=== PATIENT | male | born 1950 | race Caucasian/White ===

== ENCOUNTER → 2017-12-07 | Outpatient (CLI) | payer OTHER, MEDICARE ==
[~2017-12-07] MED LIST: GADOBUTROL 10 ML VIAL IVP ONE
== END ==
LOC: FIMAGING 07:46
PROVIDERS: ATTEND Urology
DX: N40.2 Nodular prostate without lower urinary tract symptoms (principal)
CPT/HCPCS: 72197; 76377; A9585; 82565-PO

== ENCOUNTER → 2018-02-01 | Outpatient (CLI) | payer OTHER, MEDICARE ==
[~2018-02-01] MED LIST changes: -GADOBUTROL 10 ML VIAL IVP ONE; +IOPAMIDOL (ISOVUE-300) 100 ML BTL ONE
== END ==
LOC: FIMAGING 09:19
PROVIDERS: ATTEND Urology
DX: C61 Malignant neoplasm of prostate (principal); I70.0 Atherosclerosis of aorta
CPT/HCPCS: 74177; 78306; A9503; Q9967

== ENCOUNTER 2018-03-04 11:35 | Observation (INO) | payer OTHER, MEDICARE ==
--- NOTE | 2018-03-04 11:04 | PDANEPAE ---
ANE History of Present Illness prostate ca ANE Past Medical History - Cardiovascular History Hx Hypertension: Yes Hx Arrhythmias: No Hx Chest Pain: No Hx Coronary Artery / Peripheral Vascular Disease: No Hx CHF / Valvular Disease: No Hx Palpitations: No - Pulmonary History Hx COPD: No Hx Asthma/Reactive Airway Disease: No Hx Recent Upper Respiratory Infection: No Hx Oxygen in Use at Home: No Hx Sleep Apnea: No Sleep Apnea Screening Result - Last Documented: Positive Pulmonary History Comment: JOSÉ triggers - Neurologic History Hx Cerebrovascular Accident: No Hx Seizures: No Hx Dementia: No - Endocrine History Hx Diabetes: No Hypothyroid: No Hyperthyroid: No Obesity: no - Renal History Hx Renal Disorders: No - Liver History Hx Hepatic Disorders: No - Neurological & Psychiatric Hx Hx Neurological and Psychiatric Disorders: No - Cancer History Hx Cancer: No - Congenital Disorder History Hx Congenital Disorders: No Congenital History Comment: multiple family members of PE'S - GI History GERD: mild Hx Gastrointestinal Disorders: Yes Gastrointestinal History Comment: reflux - Other Health History Other Health History: allergic rhinitis. dental implants - Chronic Pain History Chronic Pain: No - Surgical History Prior Surgeries: elbow bone spur removal ANE Review of Systems Review of systems is: negative Review of Systems: - Exercise capacity METS (RN): 6 METS ANE Patient History - Allergies Allergies/Adverse Reactions: No Known Allergies Allergy (Verified 02/25/18 16:41) - Home Medications Home medications: home medication list seen and reviewed Home Medications: Atorvastatin Calcium [Lipitor 10 mg (*)] 10 mg PO HS 02/18/18 [Last Taken Unknown] Cyanocobalamin [Vitamin B12 (*)] 1,000 mcg PO DAILY 02/18/18 [Last Taken Unknown ] Fexofenadine HCl [Alicia Allergy] 60 mg PO DAILY 02/18/18 [Last Taken Unknown] Herbals/Supplements -Info Only 1 ea PO DAILY 02/18/18 [Last Taken Unknown] Losartan Potassium [Cozaar 50 mg (*)] 50 mg PO DAILY 02/18/18 [Last Taken Unknown] Omeprazole 20 mg PO DAILY 02/18/18 [Last Taken Unknown] Aspirin EC 81 mg (*) 02/25/18 [Last Taken Unknown] Ibuprofen 02/25/18 [Last Taken Unknown] - NPO status NPO Status: no food or drink >8 hours - Anes Hx Anes Hx: no prior problems - Smoking Hx Smoking Status: Never smoked Marijuana use: No - Alcohol Use Alcohol Use: Rarely - Family Anes Hx Family Anes Hx: none Family Hx Anesthesia Complications: none ANE Labs/Vital Signs - Vital Signs Height: 179.07 cm Weight: 90.718 kg ANE Physical Exam - Airway Neck exam: FROM Mallampati Score: Class 2 Mouth exam: normal dental/mouth exam - Pulmonary Pulmonary: no respiratory distress, clear to auscultation - Cardiovascular Cardiovascular: regular rate and rhythym, no murmur, rub, or gallop - ASA Status ASA Status: III ANE Anesthesia Plan Anesthesia Plan: general endotracheal anesthesia
[~2018-03-04 11:35] MED LIST changes: +HEPARIN 5,000 UNIT/0.5 ML INJ SC SCH; -IOPAMIDOL (ISOVUE-300) 100 ML BTL ONE
[2018-03-04] MEDS ORDERED: BUPIVACAINE/EPI 0.25% 30 ML SDV ONE (11:45)
[2018-03-04] MEDS ORDERED: PROPOFOL 200 MG/20 ML VIAL ONE (11:47)
[2018-03-04] MEDS ORDERED: fentaNYL 250 MCG/5 ML INJ ONE (11:47)
[2018-03-04] MEDS ORDERED: ROCURONIUM 100 MG/10 ML VIAL ONE (11:48)
[2018-03-04] MEDS ORDERED: LIDOCAINE 2% 5 ML SDV ONE (11:48)
[2018-03-04] MEDS ORDERED: ceFAZolin 2 GM in NS 100 ML IV ONE (11:55)
[2018-03-04] MEDS ORDERED: LR 1,000 ML IV ONE (11:56)
[2018-03-04] MEDS ORDERED: MIDAZOLAM 2 MG/2 ML VIAL IVP ONE (11:57)
[2018-03-04] MEDS ORDERED: CEFAZOLIN 2 GM/DEXTROSE/100 ML BAG IV ONE (11:57)
--- NOTE | 2018-03-04 12:52 | PDHPUP ---
History & Physical Update H&P update statement: This history and physical update is based on an assessment of the patient which was completed after admission or registration (within 24 hours), but prior to the surgery/procedure. H&P update: H&P reviewed & patient examined, no change in patient's condition since H&P completed H&P changes: none
[2018-03-04] MEDS ORDERED: DEXAMETHASONE 4 MG/ML VIAL ONE (13:33)
[2018-03-04] MEDS ORDERED: hydrALAZINE 20 MG/ML VIAL ONE (13:33)
[2018-03-04] MEDS ORDERED: NEOSTIGMINE METHYLSULFATE 5 MG/5 ML SYR ONE (15:22)
[2018-03-04] MEDS ORDERED: KETOROLAC 30 MG/1 ML SDV ONE (15:30)
[2018-03-04] MEDS ORDERED: PROMETHAZINE HCL 25 MG/ML INJ IVP PRN (15:33)
[2018-03-04] MEDS ORDERED: NALOXONE HCL 0.4 MG/ML INJ IVP PRN (15:33)
--- NOTE | 2018-03-04 15:34 | POSTANESTH ---
Post Anesthetic Evaluation Cardiovascular Status: Normal, Stable Respiratory Status: Normal, Stable Level of Consciousness/Mental Status: Can Participate in Eval Pain Control: Adequate, Prn Tx Ordered Nausea/Vomiting Control: Adequate, Prn Tx Ordered Complications Possibly Related to Anesthesia: None Noted
[2018-03-04] MEDS ORDERED: HYDROmorphONE/DILAUDID 2 MG/ML INJ ONE (15:56)
[2018-03-04] MEDS ORDERED: fentaNYL 100 MCG/2 ML INJ ONE ×2 (15:56→17:02)
[2018-03-04] MEDS: fentaNYL 100 MCG/2 ML INJ IVP PRN ×3 (16:00→17:03)
[2018-03-04] MEDS: HYDROmorphONE/DILAUDID 2 MG/ML INJ IVP PRN ×4 (16:09→17:01)
[2018-03-04] MEDS ORDERED: ACETAMINOPHEN 325 MG TAB PO PRN (16:31)
[2018-03-04] MEDS ORDERED: ZOLPIDEM TARTRATE 5 MG TAB PO PRN (16:32)
[2018-03-04] MEDS ORDERED: ONDANSETRON 4 MG/2 ML VIAL IVP PRN (16:33)
--- NOTE | 2018-03-04 16:35 | POSTOPPROG ---
Post Op Note Date of Operation: 03/04/18 Surgeon: Jaxon Salas Director Community Organization: [facility] Anesthesiologist: Sophie Anesthesia: GET(General Endotracheal) Pre-op Diagnosis: prostate cancer Post-op Diagnosis: same Indication: prostate cancer Procedure: robotic radical prostatectomy with bilateral pelvic lymph node dissetion Inf/Abcess present in the surg proc area at time of surgery?: No Depth: Organ Space EBL: 50-100 Complications: none Drains: Miguel A Cantu (ac)
[2018-03-04] MEDS ORDERED: HYDROCODONE/APAP 5/325 TAB ONE (16:56)
[2018-03-04] MEDS: HYDROCODONE/APAP 5/325 TAB PO PRN ×2 (16:57→21:18)
[2018-03-04] MEDS ORDERED: OPIUM/BELLADONNA ALKALO SUPP PR PRN (17:13)
[2018-03-04] MEDS: D5W 1/2 NS 1,000 ML IV SCH (19:50)
[2018-03-04] MEDS: OXYBUTYNIN CHLORIDE 5 MG TAB PO SCH (21:11)
[2018-03-04] MEDS: HEPARIN 5,000 UNIT/0.5 ML INJ SC SCH (21:19)
--- NOTE | 2018-03-05 02:42 | GOP ---
DATE OF OPERATION: 03/04/2018 SURGEON: Jaxon Salas MD NUTRITION PARTNER: SALIMA Cash. ANESTHESIA: General. PREOPERATIVE DIAGNOSIS: Prostate cancer. POSTOPERATIVE DIAGNOSIS: Prostate cancer. PROCEDURE PERFORMED: Robotic radical prostatectomy with bilateral pelvic lymph node dissection. FINDINGS: INDICATIONS: This is a gentleman with biopsy-proven prostate cancer. DESCRIPTION OF PROCEDURE: Consent obtained. The patient was brought in the operating room. Once ge neral anesthesia was under way, he was put in the modified lithotomy position. A realtime court reporter-out was a ccomplished and the patient identified as well as the procedure. He was prepped and draped in the no rmal sterile fashion. A Landa catheter was inserted without difficulty. A small incision was made just about the umbilicus. This was carried down sharply through the subcut aneous tissue and the rectus fascia was cut with scissors. A trocar was then put into the abdomen an d CO2 inflation was begun. Inspection of the abdomen showed adhesions in the left lower quadrant, but was otherwise normal. The robot was then docked as the patient was placed in steep Trendelenburg. The adhesions of the left lower quadrant were excised from the abdominal wall. The bilateral pelvic lymph node dissection was then performed by incising the peritoneum over the iliac arteries. The fat as well as the lymphatics that were between the external iliac vein and the obturator nerve were the n taken and sent to Pathology for evaluation. The anterior abdominal wall was incised with electrocautery. The space of Retzius was entered as the lateral umbilical ligaments were cut. Dissection was continued down to the symphysis pubis and then out laterally. The fat overlying the endopelvic fascia was dissected away and the endopelvic fascia overlying the prostate could be identified. The endopelvic fascia was incised on either side of pro state and carried out toward the puboprostatic ligaments, which were then cut. 0 Vicryl was placed a round the dorsal vein and tied tightly. An incision was then made between the bladder and prostate, and this was carried down posteriorly to that the bladder could be from the prostate completely. Dissection was continued through D enonvilliers fascia until the bilateral seminal vesicals were identified. These were cut and the klaudia inal vesicles were dissected out on either side. The lateral pedicles were then taken with clips and cautery. This was taken out toward the apex of the prostate. The rectourethralis attachments were taken sharply. The dorsal vein complex was then cut with electrocautery, urethra cut with scissors. The remaining rectourethralis attachments were taken sharply. The prostate was then completely . There was no evidence of any significant bleeding. The anastomosis was then done with a stratosphere suture; this was done in a running fashion from the 6 o 'clock to 12 o'clock position in both a clockwise and counterclockwise method. This was done over a Landa catheter. Irrigation showed no evidence of leakage. A 10 flat Miguel A-Cantu drain was then put into the right-sided trocar site. The robot was undocked. The prostate was brought through the midline incision. The rectus fascia was closed with a 2-0 Vicryl. The skin was closed with 4-0 Monocryl. The patient tolerated the procedure well. Estimated blood loss was 100 cc. He was transferred to [facility] recovery room in good condition. /[id number]/MODL
[2018-03-05] MEDS: HEPARIN 5,000 UNIT/0.5 ML INJ SC SCH ×2 (05:21→14:23)
[2018-03-05 05:29] LABS: PLATELET COUNT 199 10^3/uL (150-400)
[2018-03-05] MEDS: D5W 1/2 NS 1,000 ML IV SCH (05:45)
--- NOTE | 2018-03-05 07:32 | SOAPPROG ---
SOAP Progress Note Assessment/Plan: Assessment:POD#1 Robot prostatectomy Plan: Out of bed today, walks in pepper clears this am, adv as tolerated will see this evening, if tolerating regular diet and low output from LAUREN, may be able to discharge tonight versus the next AM 03/05/18 07:30 Subjective: POD #1 from robotic prostatectomy only got out of bed once soreness in abdomen slept well Objective: abd soft with mild tympany urine output excellent and now clear yellow minimal output from the LAUREN Vital Signs Temp Pulse Resp BP Pulse Ox 36.9 C 63 16 110/68 92 03/05/18 05:32 03/05/18 05:32 03/05/18 05:32 03/05/18 05:32 03/05/18 05:32 Laboratory Results 03/05/18 04:55 03/05/18 04:55 03/04/18 03/05/18 03/06/18 05:59 05:59 05:59 Intake Total 3860 Output Total 1845 Balance 2014 - Pending Discharge Pending Discharge Within 48 Hours: Yes Pending Discharge Date: 03/07/18 Pending Discharge Time: 11:00 ICD10 Worksheet Patient Problems: Problems Problem Status Onset Prostate cancer Acute - ICD10 Problem Qualifiers (1) Prostate cancer
[2018-03-05] MEDS ORDERED: CETIRIZINE 10 MG TAB PO SCH (09:00)
[2018-03-05] MEDS ORDERED: PANTOPRAZOLE SODIUM 40 MG TAB PO SCH (09:00)
[2018-03-05] MEDS ORDERED: LOSARTAN POTASSIUM 50 MG TAB PO SCH (09:00)
[2018-03-05] MEDS: HYDROCODONE/APAP 5/325 TAB PO PRN ×2 (09:44→15:10)
[2018-03-05] MEDS: OXYBUTYNIN CHLORIDE 5 MG TAB PO SCH ×2 (09:46→16:25)
[2018-03-05 13:34] VITALS: BP 127/59
--- NOTE | 2018-03-05 14:52 | ASMTCMCOM ---
CM Note CM Note Notes: CM reviewed pt's chart for d/c planning. Pt is a 67 y/o male with diagnosed prostate cancer who underwent a radical prostatectomy with bilateral pelvic lymph node dissection. Pt is out of bed today and may be able to d/c this evening or tomorrow am. There are no PT/OT orders and no CM needs have been identified. CM will follow for changes. D/C Plan: Anticipate independent Date Signed: 03/05/2018 02:51 PM Electronically Signed By:Kyra Blanco
--- NOTE | 2018-03-05 17:41 | SOAPPROG ---
SOAP Progress Note Assessment/Plan: Assessment:POD#1 Robot prostatectomy Plan: LAUREN removed Discharge home Follow up next week in the office to have the ac removed 03/05/18 07:30 03/05/18 17:41 Subjective: Doing very well post op day #1 from robot prostatectomy labs all stable excellent urine output minimal LAUREN output wounds all healing well ambulating well tolerating regular diet Objective: wounds healing well ecchymosis near drain site abd soft min tender Vital Signs Temp Pulse Resp BP Pulse Ox 37.6 C 60 18 127/59 H 92 03/05/18 13:33 03/05/18 13:33 03/05/18 13:33 03/05/18 13:33 03/05/18 13:33 Laboratory Results 03/05/18 04:55 03/05/18 04:55 03/04/18 03/05/18 03/06/18 05:59 05:59 05:59 Intake Total 3860 Output Total 1845 1300 Balance 2014 -1300 - Pending Discharge Pending Discharge Within 24 Hours: Yes Pending Discharge Date: 03/06/18 Pending Discharge Time: 11:00 ICD10 Worksheet Patient Problems: Problems Problem Status Onset Prostate cancer Acute - ICD10 Problem Qualifiers (1) Prostate cancer
[2018-03-05] MEDS ORDERED: ATORVASTATIN CALCIUM 10 MG TAB PO SCH (21:00)
[2018-03-06] MEDS ORDERED: LOSARTAN POTASSIUM 50 MG TAB PO SCH (09:00)
--- NOTE | 2018-03-06 11:13 | GDS ---
PREOPERATIVE DIAGNOSIS: Prostate cancer. POSTOPERATIVE DIAGNOSIS: Prostate cancer. PROCEDURE: Robotic prostatectomy with bilateral pelvic lymph node dissection on 03/04/2018. HOSPITAL COURSE: The patient was admitted on 03/04/2018, having undergone a robotic prostatectomy wi th bilateral pelvic lymph node dissection. He recovered from this operation quite well. Postoperati vely, he was taken to his room stable. His labs remained stable throughout his hospital stay as did his vital signs. His urine output was excellent. His LAUREN drain output was minimal. He was ambulatin g. He was able to tolerate clear liquids and then was able to tolerate a regular diet. His drain wa s removed on postoperative day 1. He was taught how to use a leg bag, and will be discharged to home with a Landa catheter in place. He has been given 3 days of ciprofloxacin to start the day before t he Landa is to be removed, and he was given [place] to control any pain he might have. He will follow up with me in the office for cath removal and to go over the pathology report. /[id number]/MODL
== END 2018-03-05 18:29 | disposition home or self-care (01) ==
LOC: INTOOBSV 11:35 → F3E 11:35 → F1N 12:51 → INTOOBSV 03-05 17:10 → OBSVTOIN 03-05 17:10
PROVIDERS: ADMIT Urology; ATTEND Urology
DX: C61 Malignant neoplasm of prostate (principal); I10 Essential (primary) hypertension; G47.33 Obstructive sleep apnea (adult) (pediatric); E78.5 Hyperlipidemia, unspecified
CPT/HCPCS: J0360; J0690; J1100; J1170; J1200; J1644; J1885; J2250; J2270; J2405; J2704; J2710; J3010

== ENCOUNTER → 2018-04-20 | Outpatient (CLI) | payer OTHER, MEDICARE | LOC: BMCIMAGING 09:50 | PROVIDERS: ATTEND Physician Assistant | DX: M17.12 Unilateral primary osteoarthritis, left knee (principal) ==

== ENCOUNTER → 2018-08-18 | Outpatient (CLI) | payer OTHER, MEDICARE | LOC: BMCIMAGING 09:59 ==

== ENCOUNTER → 2018-08-25 | Outpatient (CLI) | payer OTHER, MEDICARE | LOC: BMCIMAGING 15:11 ==